=== PATIENT | female | born 1995 | race Caucasian/White ===

== ENCOUNTER 2017-04-08 21:07 | Outpatient (CLI) | payer SELFPAY ==
[2017-04-08] MEDS ORDERED: LACTATED RINGER'S 1,000 ML IV SCH (21:17)
[2017-04-08] MEDS ORDERED: ONDANSETRON 4 MG INJ IV STA (21:17)
[2017-04-08 21:49] LABS: ADD SCAN DIFF NO
[2017-04-08 21:52] LABS: BASOPHIL # 0.1 10^3/ul (0.0-0.1); BASOPHILS % 0.3 % (0.0-2.0); EOSINOPHILS # 0.2 10^3/ul (0.0-0.5); EOSINOPHILS % 1.3 % (0.0-7.0); HEMATOCRIT 29.5 % (37.0-47.0); HEMOGLOBIN 9.9 g/dl (12.0-16.0); LYMPHOCYTES # 2.5 10^3/ul (0.8-2.9); LYMPHOCYTES % 13.5 % (15.0-51.0); MEAN CORPUSCULAR HEMOGLOBIN 31.7 pg (29.0-33.0); MEAN CORPUSCULAR HGB CONC 33.6 g/dl (32.0-37.0); MEAN CORPUSCULAR VOLUME 94.6 fl (82.0-101.0); MEAN PLATELET VOLUME 8.3 fl (7.4-10.4); MONOCYTE # 1.1 10^3/ul (0.3-0.9); MONOCYTES % 5.8 % (0.0-11.0); NEUTROPHIL # 14.2 10^3/ul (1.6-7.5); NEUTROPHILS % 75.8 % (39.0-77.0); PLATELET COUNT 300 10^3/UL (140-415); RED BLOOD COUNT 3.12 10^6/ul (4.20-5.40); RED CELL DISTRIBUTION WIDTH 13.9 % (11.5-14.5); WHITE BLOOD COUNT 18.7 10^3/ul (4.8-10.8)
[2017-04-08 21:59] LABS: ADD UMIC NO; URINE BILIRUBIN (Dip) NEGATIVE (NEGATIVE); URINE BLOOD (Dip) NEGATIVE (NEGATIVE); URINE COLOR LT. YELLOW (YELLOW); URINE GLUCOSE (Dip) NEGATIVE (NEGATIVE); URINE KETONES (Dip) NEGATIVE (NEGATIVE); URINE LEUKOCYTE ESTERASE (Dip) NEGATIVE (NEGATIVE); URINE NITRITE (Dip) NEGATIVE (NEGATIVE); URINE TOTAL PROTEIN (Dip) NEGATIVE (NEGATIVE); URINE UROBILINOGEN (Dip) 0.2 E.U./dL (0.1-1.0)
[2017-04-08 22:12] LABS: ALBUMIN/GLOBULIN RATIO 1.6; BILIRUBIN,INDIRECT 0.1 mg/dl (0-1.1); BILIRUBIN,TOTAL 0.1 mg/dl (0.2-1.3); CALCIUM 8.9 mg/dl (8.4-10.2); CREATININE 0.47 mg/dl (0.44-1.00); POTASSIUM 3.6 mmol/L (3.5-5.1); TOTAL PROTEIN 6.5 g/dl (6.1-8.1)
--- NOTE | 2017-04-08 22:13 | RADRPT ---
PROCEDURE: Limited obstetric ultrasound CLINICAL INDICATION: Pain TECHNIQUE: Multiple transverse and longitudinal grayscale images of the pelvis were obtained lieberman sabdominally and transvaginally.. COMPARISON: same day FINDINGS: The cervix is closed with a length of 3.4 cm. There is a single viable intrauterine gestation. Cardiac activity is present with 135 beats per min havasupai. There is a vertex/variable presentation. The placenta is posterior. There is no evidence for an abruption or placenta previa. There is a normal amount of amniotic fluid with a MVP= 6.3 cm. RPTAT: AA IMPRESSION: Cervix length measures 3.4 cm. .Osiel Wong MD, MD Date Time Electronically viewed and signed by .Osiel Wong MD, on 04/08/2017 22:13 .S/
[2017-04-08] MEDS ORDERED: PREN1TAB79 PO (22:39)
[2017-04-08] MEDS ORDERED: FERR325C PO (22:40)
--- NOTE | 2017-04-08 22:40 | PN ---
Triage Information Date/Time Weeks of Gestation 20+ : 1 Para: 0 Diabetes: none Hypertention: none Results/Medications Result Diagram: 04/08/17212904/08/172129 Results 24 hrs Laboratory Tests Test 04/08/17 21:20 04/08/17 21:30 Urine Color LT. YELLOW Urine Clarity CLEAR Urine pH 6.5 Urine Specific [place] <=1.005 L Urine Ketones NEGATIVE Urine Nitrite NEGATIVE Urine Bilirubin NEGATIVE Urine Urobilinogen 0.2 E.U./dL Urine Leukocyte Esterase NEGATIVE Urine Hemoglobin NEGATIVE Urine Glucose NEGATIVE Urine Total Protein NEGATIVE White Blood Count 18.7 #H Red Blood Count 3.12 #L Hemoglobin 9.9 #L Hematocrit 29.5 #L Mean Corpuscular Volume 94.6 Mean Corpuscular Hemoglobin 31.7 Mean Corpuscular Hemoglobin Concent 33.6 Red Cell Distribution Width 13.9 Platelet Count 300 Mean Platelet Volume 8.3 Neutrophils % 75.8 Lymphocytes % 13.5 L Monocytes % 5.8 Eosinophils % 1.3 Basophils % 0.3 Nucleated Red Blood Cells % 0.0 Neutrophils # 14.2 H Lymphocytes # 2.5 Monocytes # 1.1 H Eosinophils # 0.2 Basophils # 0.1 Nucleated Red Blood Cells # 0.0 Sodium Level 140 Potassium Level 3.6 Chloride Level 107 Carbon Dioxide Level 25 Anion Gap 12 Blood Urea Nitrogen 8 Creatinine 0.47 Glucose Level 109 Calcium Level 8.9 Total Bilirubin 0.1 L Direct Bilirubin 0.00 Indirect Bilirubin 0.1 Aspartate Amino Transf (AST/SGOT) 25 Alanine Aminotransferase (ALT/SGPT) 31 Alkaline Phosphatase 68 Total Protein 6.5 Albumin 4.0 Globulin 2.50 Albumin/Globulin Ratio 1.60 Medications Current Medications Lactated Ringer's (Lr) 1,000 ml @ 125 mls/hr Q8H IV Last administered on t 21:36; Admin Dose 125 MLS/HR; Start 04/08/17 at 21:17 Assessment/Plan Food poisioning Labs and ultrasound reviewed WBC 18 --->patient is sent to ER for further evaluation FADI SMALL M.D. Apr 08, 2017 22:40
--- NOTE | 2017-04-08 23:01 | TRIAGE ---
OB Triage Datetime Report Generated by CPN: 04/08/2017 23:01 Datetime: 04/08/2017 22:50 Stage of : OB Triage Datetime: 04/08/2017 22:00 Labor Evaluation Frequency: NONE Monitor Mode: External Pattern: Normal: <= 5 Contractions in 10 Minutes Datetime: 04/08/2017 21:52 Time of Arrival: 04/08/2017 20:52 EGA: 20.3 Arrived By: Wheelchair Arrived From: Home Chief Complaint: N/V X5 EPISODE Movement: Present Contractions: Denies/Absent Rupture of Membranes: Denies Vaginal Discharge: Denies Recent Sexual Intercouse: Denies Abdominal Trauma: Not Applicable Time Provider Notified: 04/08/2017 20:56 Provider Notified: GEOVANNY Initial Plan: DOPPLER, CALL OB Datetime: 04/08/2017 21:23 Monitor Mode: Palpation Resting Tone Belen: Relaxed Contraction Comments: toco tracing only Heart Rate FHR Baseline Rate: 145 Monitor Mode: External US Datetime: 04/08/2017 21:20 Comments: APPROPRIATE TRACING FOR GA 20.3 Datetime: 04/08/2017 21:13 Monitor Mode: External US Comments: EXTERNAL MONITOR APPLIED FOR FHT Datetime: 04/08/2017 21:12 Heart Rate FHR Baseline Rate: 150 Comments: DOPPLER USED, FHT AUDIBLE BY THIS RN AND PT. Datetime: 04/08/2017 21:00 Assessment Type: Triage Maternal Assessment Level of Consciousness: Fully Conscious Headache: Denies Blurred Vision: No Respiratory Effort: Unlabored; Regular Rhythm; Equal Expansion Nausea/Vomiting: Hx of Nausea/Vomiting RUQ Epigastric Pain: Denies Facial Edema: None Fall Risk Assessment History of Falling: (0) No Secondary Diagnosis: (0) No Ambulatory Aid: (0) Bedrest/Nurse Assist IV Therapy: (0) No Gait: (0) Normal/Bedrest/Immobile Mental Status: (0) Oriented to Own Ability Fall Score: 0 Fall Risk Score Definition: No Risk: No action required Datetime: 04/08/2017 20:56 Stage of : OB Triage
[2017-04-08] MEDS ORDERED: ONDA4TAB14 PO (23:22)
[2017-04-08] MEDS ORDERED: RANI150T9 PO (23:22)
== END 2017-04-08 22:50 | disposition home or self-care (01) ==
LOC: OBT 21:07 → L-D 21:08 → OBT 22:50
PROVIDERS: ATTEND Obstetrics & Gynecology
DX: O26.892 Other specified pregnancy related conditions, second trimester (principal); Z3A.20 20 weeks gestation of pregnancy
CPT/HCPCS: 76815; 76817; 80053; 81003; 85025; 96360; 96374; G0463; J2405; J7120

== ENCOUNTER 2017-04-08 23:01 | Emergency (ER) | payer SELFPAY ==
[~2017-04-08] VITALS: Ht 152.4 cm; Wt 59.0 kg
[~2017-04-08 23:01] MED LIST: FERR325C PO; PREN1TAB79 PO
[2017-04-08 23:05] VITALS: Ht 152.4 cm; Wt 59.0 kg
[2017-04-08] MEDS ORDERED: ONDA4TAB14 PO (23:22)
[2017-04-08] MEDS ORDERED: RANI150T9 PO (23:22)
--- NOTE | 2017-04-08 23:24 | ERD ---
ER Documentation Chief Complaint Date/Time DATE: 04/08/17 TIME: 23:23 Chief Complaint n/v x5 today cleared by ob triage. 20 wks preg. HPI 21-year-old female comes with nausea vomiting 5 today. She is cleared by OB triage and sent down for further evaluation. According to the patient she had spicy food and vomited afterwards. She has no fevers no chills. No diarrhea. She currently has no abdominal pain. ROS All systems reviewed and are negative except as per history of present illness. Medications Home Meds Active Scripts Ranitidine Hcl* (Zantac*) 150 Mg Tablet, 150 MG PO BID Y for EPIGASTRIC PAIN, # 30 TAB Prov:SHERRYSUSY Branden. 04/08/17 Ondansetron (Ondansetron Odt) 4 Mg Tab.rapdis, 4 MG PO Q6H Y for NAUSEA AND/OR VOMITING, #10 TAB Prov:NADIAORLINSUSY Branden. 04/08/17 Reported Medications Ferrous Sulfate (Iron) 325 Mg Capsule.er, 325 MG PO, CAP 04/08/17 Vit W-Ca,Fe,FA(<1 mg) ( Vitamins) 1 Each Tablet, 1 EACH PO, TAB 04/08/17 Allergies Allergies: Coded Allergies: No Known Allergy (Unverified , 06/21/15) PMhx/Soc Hx Alcohol Use: No Hx Substance Use: No Hx Tobacco Use: No Physical Exam Vitals Vital Signs Date Time Temp Pulse Resp B/P Pulse Ox O2 Delivery O2 Flow Rate FiO2 04/08/17 23:05 98.6 75 18 90/75 100 Physical Exam Const: [] Head: Atraumatic Eyes: Normal Conjunctiva ENT: Normal External Ears, Nose and Mouth. Neck: Full range of motion..~ No meningismus. Resp: Clear to auscultation bilaterally Cardio: Regular rate and rhythm, no murmurs Abd: Soft, non tender, non distended. Normal bowel sounds Skin: No petechiae or rashes Back: No midline or flank tenderness Ext: No cyanosis, or edema Neur: Awake and alert Psych: Normal Mood and Affect Procedures/MDM Medical decision-makin-year-old female comes in for vomiting after eating spicy food. Patient is . Labs were reviewed. She does have mild leukocytosis, likely of . She has a negative abdominal exam. No tenderness elicited. She will be discharged with Zantac and Zofran. Follow-up in 8 hours for serial abdominal exams. Departure Diagnosis: Primary Impression: Nausea and vomiting Vomiting type: unspecified Vomiting Intractability: non-intractable Qualified Code: R11.2 - Non-intractable vomiting with nausea, unspecified vomiting type Condition: Stable Patient Instructions: Nausea and Vomiting-Adult SUSY POWELL Apr 08, 2017 23:24
== END 2017-04-08 23:35 | disposition home or self-care (01) ==
LOC: E/R 23:01
DX: R11.2 Nausea with vomiting, unspecified (principal)
CPT/HCPCS: 99283